=== PATIENT | male | born 1970 | race Caucasian/White ===

== ENCOUNTER → 2020-04-02 | Outpatient (REF) | payer BC ==
[~2020-04-02] MED LIST: Asacol PO; FERR325T OR; FOLI1TAB OR; MULTIVIT PO; PRED10TA2 OR; PRED20TA OR; PRED50TA OR; PRED5TAB OR; VITA100T OR
== END ==
LOC: M LAB REF 14:45
PROVIDERS: ATTEND Physician Assistant
DX: Z11.59 Encounter for screening for other viral diseases (principal)